=== PATIENT | female | born 1950 | race Caucasian/White ===

== ENCOUNTER 2024-03-28 08:57 | Emergency (ER) | payer OTHER ==
[2024-03-28 11:29] LABS: Anion Gap 4.9 mEq/L (5.0-15.0); Magnesium 2.1 mg/dL (1.6-2.4); Potassium 2.9 mEq/L (3.5-5.1)
[2024-03-28] MEDS ORDERED: KCL 20 MEQ/100 mL IVPB 100 ML IV ONE (11:48)
[2024-03-28] MEDS ORDERED: NA CHLORIDE 0.9% 500 ML ONE (11:48)
[2024-03-28] MEDS ORDERED: POTASSIUM 25 MEQ EFFERV TAB ONE (11:48)
--- NOTE | 2024-03-28 13:38 | ER ---
Nurse's Notes [facility] Name: Isabelle Viveros Age: 73 yrs Sex: Female : 1950 Arrival Date: 03/28/2024 Time: 08:57 Bed 7 Private MD: Diagnosis: Hypokalemia Presentation: 03/28 09:20 Chief complaint: Patient states: she was sent for "low potassium". patient denies any ap3 pain at this time. Coronavirus screen: At this time, the client does not indicate any symptoms associated with coronavirus-19. Ebola Screen: No symptoms or risks identified at this time. Initial Sepsis Screen: Does the patient meet any 2 criteria? No. Patient's initial sepsis screen is negative. Does the patient have a suspected source of infection? No. Patient's initial sepsis screen is negative. Risk Assessment: Do you want to hurt yourself or someone else? Patient reports no desire to harm self or others. Onset of symptoms is unknown. 09:20 Method Of Arrival: Wheelchair ap3 09:21 Acuity: ANUSHKA 3 ap3 Triage Assessment: 09:24 General: Appears in no apparent distress. Behavior is calm, cooperative, appropriate ap3 for age. Pain: Denies pain. Neuro: Level of Consciousness is awake, alert, obeys commands, Oriented to person, place, time, situation, Speech is normal. Cardiovascular: Patient's skin is warm and dry. Respiratory: Airway is patent Respiratory effort is even, unlabored, Respiratory pattern is regular, symmetrical. GI: No deficits noted. Historical: - Allergies: 09:20 No Known Allergies; ap3 - PMHx: 09:20 Glaucoma; RA; Hypertension; Congestive heart failure; Multiple sclerosis; Myocardial ap3 infarction; Depressive disorder; - PSHx: 09:20 Wrist - Right; ap3 - Immunization history:: Client reports receiving the 2nd dose of the Covid vaccine. - Infectious Disease History:: Denies. - Social history:: Smoking status: unknown. - Family history:: not pertinent. - Hospitalizations: : No recent hospitalization is reported. Screenin:24 Abuse screen: Denies threats or abuse. Nutritional screening: No deficits noted. ap3 Tuberculosis screening: No symptoms or risk factors identified. 12:05 [facility] ED Fall Risk Assessment (Adult) History of falling in the last 3 months, ph including since admission No falls in past 3 months (0 pts) Confusion or Disorientation No (0 pts) Intoxicated or Sedated No (0 pts) Impaired Gait Yes (1 pt) Mobility Assist Device Used Yes (1 pt) Altered Elimination Yes (1 pt) Score/Fall Risk Level 3 or more points = High Risk Oriented to surroundings, Maintained a safe environment, Hourly rounding (assess needs \\T\\ fall precautionary measures) done, Used ambulatory aids as needed (educated on \\T\\ assisted with). Assessment: 11:21 Reassessment: No changes from previously documented assessment. Patient and/or family ll1 updated on plan of care and expected duration. Pain level reassessed. Patient is alert, oriented x 3, equal unlabored respirations, skin warm/dry/pink. 13:44 Reassessment: D/C pending completion of IV potassium. ph 14:27 Reassessment: Report given to Iveth at [facility], awaiting [facility] for ph transport back to facility. Vital Signs: 09:21 BP 147 / 86; Pulse 64; Resp 18; Temp 97.4; Pulse Ox 95% on R/A; ap3 12:06 BP 138 / 78; Pulse 62; Resp 18; Pulse Ox 98% on R/A; ph 13:00 BP 127 / 89; Pulse 64; Resp 18; Temp 98; Pulse Ox 99% on R/A; ph 14:29 BP 139 / 76; Pulse 64; Resp 19; Temp 97.5; Pulse Ox 98% on R/A; ph ED Course: 09:00 Patient arrived in ED. mg5 09:01 Anthony Pope MD is Attending Physician. rn 09:24 Triage completed. ap3 09:25 Arm band placed on left wrist. ap3 10:15 Natalee Guzman, ROGERIO is Primary Nurse. ph 10:19 Client placed on continuous cardiac and pulse oximetry monitoring. NIBP monitoring ap3 applied. message clerk on. Pulse ox on. NIBP on. 11:04 Magnesium Sent. ph 11:04 Basic Metabolic Panel Sent. ph 11:04 Initial lab(s) drawn, by me, sent to lab. Inserted saline lock: 22 gauge in right ph antecubital area, using aseptic technique. Blood collected. Flushed with 10 mL NS. 11:21 EKG done. ll1 12:05 No provider procedures requiring assistance completed. ph 12:06 Patient has correct armband on for positive identification. Bed in low position. Call ph light in reach. Side rails up X 1. Door closed. Noise minimized. Lights dimmed. Warm blanket given. Pillow given. PO fluids given. 14:29 IV discontinued, intact, bleeding controlled, No redness/swelling at site. Pressure ph dressing applied. Administered Medications: 12:05 Drug: Potassium Chloride IV 20 mEq IV at calculated rate once; administer over 1-2 ph hours Route: IV; Rate: calculated rate; Site: right antecubital; 14:05 Follow up: Response: No adverse reaction; IV Status: Completed infusion ph 12:05 Drug: Potassium Chloride PO Liquid 40 mEq PO once Route: PO; ph 14:05 Follow up: Response: No adverse reaction ph Medication: 12:06 VIS not applicable for this client. ph Outcome: 13:38 Discharge ordered by . rn 14:54 Discharged to [facility]. Report called to [facility] 14:54 Condition: good 14:54 Discharge instructions given to patient, Instructed on discharge instructions, follow up and referral plans. Demonstrated understanding of instructions, follow-up care, 14:55 Patient left the ED. ph Signatures: Anthony Pope MD MD rn Hall, Patricia, RN RN Shira Cardenas RN RN ap3 Rosa Hinton RN RN ll1 Mila Dowell mg5
--- NOTE | 2024-03-28 13:38 | EDPHYS ---
Physician Documentation [facility] Name: Isabelle Viveros Age: 73 yrs Sex: Female : 1950 Arrival Date: 03/28/2024 Time: 08:57 Bed 7 Private MD: ED Physician Anthony Pope HPI: 03/28 09:33 This 73 yrs old Female presents to ER via Wheelchair with complaints of Abnormal nutrition internship Results. 09:33 Patient reports sent here for low potassium. Takes Lasix. Reports if not called today rn to come in would not have come in, feels fine, no acute complaints.. Onset: The symptoms/episode began/occurred at an unknown time. Severity of symptoms: At their worst the symptoms were mild in the emergency department the symptoms are unchanged. The patient has not experienced similar symptoms in the past. The patient has not recently seen a physician. Historical: - Allergies: 09:20 No Known Allergies; ap3 - PMHx: 09:20 Glaucoma; RA; Hypertension; Congestive heart failure; Multiple sclerosis; Myocardial ap3 infarction; Depressive disorder; - PSHx: 09:20 Wrist - Right; ap3 - Immunization history:: Client reports receiving the 2nd dose of the Covid vaccine. - Infectious Disease History:: Denies. - Social history:: Smoking status: unknown. - Family history:: not pertinent. - Hospitalizations: : No recent hospitalization is reported. ROS: 09:33 Constitutional: Negative for fever, chills, and weight loss, Cardiovascular: Negative rn for chest pain, palpitations, and edema, Respiratory: Negative for shortness of breath, cough, wheezing, and pleuritic chest pain, Abdomen/GI: Negative for abdominal pain, nausea, vomiting, diarrhea, and constipation, Back: Negative for injury and pain, MS/Extremity: Negative for injury and deformity, Skin: Negative for injury, rash, and discoloration, Neuro: Negative for headache, weakness, numbness, tingling, and seizure, Exam: 09:33 Constitutional: This is a well developed, well nourished patient who is awake, alert, rn and in no acute distress. ENT: Moist mucous membranes Cardiovascular: Regular rate and rhythm. No pulse deficits. Respiratory: No increased work of breathing, no retractions or nasal flaring. MS/ Extremity: Pulses equal, no cyanosis. Equal circumference. No edema appreciated Neuro: Awake and alert, GCS 15 11:24 ECG was reviewed by the Attending Physician. rn Vital Signs: 09:21 BP 147 / 86; Pulse 64; Resp 18; Temp 97.4; Pulse Ox 95% on R/A; ap3 12:06 BP 138 / 78; Pulse 62; Resp 18; Pulse Ox 98% on R/A; ph 13:00 BP 127 / 89; Pulse 64; Resp 18; Temp 98; Pulse Ox 99% on R/A; ph 14:29 BP 139 / 76; Pulse 64; Resp 19; Temp 97.5; Pulse Ox 98% on R/A; ph MDM: 09:01 Medical Screening Exam initiated rn 13:38 Differential Diagnosis hypokalemia, adverse effect of lasix. Data reviewed: vital rn signs, nurses notes, lab test result(s), and as a result, I will discharge patient. Counseling: I had a detailed discussion with the patient and/or guardian regarding the historical points, exam findings, and any diagnostic results supporting the discharge/admit diagnosis, lab results, the need for outpatient follow up, to return to the emergency department if symptoms worsen or persist or if there are any questions or concerns that arise at home. Special discussion: I discussed with the patient/guardian in detail that at this point there is no indication for admission to the hospital. It is understood, however, that if the symptoms persist or worsen the patient needs to return immediately for re-evaluation. Based on the history and exam findings, there is no indication for further emergent testing or inpatient evaluation. I discussed with the patient/guardian the need to see the primary care provider for further evaluation of the symptoms. 03/28 09: Order name: Basic Metabolic Panel; Complete Time: rn 03/28 Order name: Magnesium; Complete Time: rn 03/28 Order name: IV Start; Complete Time: 11: rn 03/28 Order name: EKG - Nurse/Tech; Complete Time: rn EC:24 Rate is 60 beats/min. Rhythm is regular. QRS [place] is Normal. IN interval is normal. QRS rn interval is normal. QT interval is normal. No Q waves. T waves are Normal. No ST changes noted. Clinical impression: Normal ECG. Interpreted by me. Reviewed by me. Administered Medications: 12:05 Drug: Potassium Chloride IV 20 mEq IV at calculated rate once; administer over 1-2 ph hours Route: IV; Rate: calculated rate; Site: right antecubital; 14:05 Follow up: Response: No adverse reaction; IV Status: Completed infusion ph 12:05 Drug: Potassium Chloride PO Liquid 40 mEq PO once Route: PO; ph 14:05 Follow up: Response: No adverse reaction ph Disposition Summary: 03/28/24 13:38 Discharge Ordered Notes: Location: Home rn Problem: new rn Symptoms: have improved rn Condition: Stable rn Diagnosis - Hypokalemia rn Followup: rn - With: Private Physician - When: As needed - Reason: Recheck today's complaints, Re-evaluation by your physician Discharge Instructions: - Discharge Summary Sheet rn - Hypokalemia rn Forms: - Medication Reconciliation Form rn - Antibiotic furnace reliner - Prescription Opioid Use rn - Patient Portal Instructions rn - Leadership Thank You Letter rn Signatures: Dispatcher [employer] EDMS Anthony Pope MD MD rn Hall, Patricia, RN RN Shira Perez RN RN ap3 Corrections: (The following items were deleted from the chart) 09:27 09:27 BASIC METABOLIC PANEL+C.LAB.BRZ ordered. EDMS EDMS 09:27 09:27 MAGNESIUM+C.LAB.BRZ ordered. EDMS EDMS
[2024-03-28 15:49] VITALS: BP 139/76; TEMP 97.5; O2SAT 98
== END 2024-03-28 14:55 | disposition home or self-care (01) ==
LOC: ER 08:57
DX: E87.6 Hypokalemia (principal); I10 Essential (primary) hypertension; I50.9 Heart failure, unspecified; I25.2 Old myocardial infarction
CPT/HCPCS: 80048; 36415; 83735; J3480; J7040